=== PATIENT | female | born 1960 | race Caucasian/White ===

== ENCOUNTER 2017-09-21 08:53 | Emergency (ER) | payer MEDICARE, MEDICAID ==
[~2017-09-21] VITALS: Ht 160 cm; Wt 83.8 kg
[~2017-09-21 08:53] MED LIST: AMLO5TAB4 PO; ARIP20TA4 PO; ASPI-1265 PO; ASPI1CPM9 PO; BECL8.7A7 IH; BENZ1TAB7 PO; BUDE10.2 INH; CARV3.1289 PO; CYCL-1 PO; DET2LAC PO; DIO80T PO; DIPH-186 PO; DIPH1TAB PO; DIVA500T7 PO; ESCI20TA29 PO; HYDR1TAB10 PO; LORA10TA7 PO; METF500T PO; METF500T4 PO; ONDA4TAB12 PO; PANT-47 PO; SIMV20TA5 PF
[2017-09-21 09:00] VITALS: BP 143/62
== END 2017-09-21 09:37 | disposition home or self-care (01) ==
LOC: ER 08:53
DX: J30.9 Allergic rhinitis, unspecified (principal); J44.9 Chronic obstructive pulmonary disease, unspecified; E11.9 Type 2 diabetes mellitus without complications; I10 Essential (primary) hypertension; K21.9 Gastro-esophageal reflux disease without esophagitis; E78.00 Pure hypercholesterolemia, unspecified; G89.29 Other chronic pain; Z86.718 Personal history of other venous thrombosis and embolism; Z88.0 Allergy status to penicillin; Z88.5 Allergy status to narcotic agent; Z86.73 Personal history of transient ischemic attack (TIA), and cerebral infarction without residual deficits; Z79.4 Long term (current) use of insulin; Z79.82 Long term (current) use of aspirin
CPT/HCPCS: 99281

== ENCOUNTER 2017-11-30 08:08 | Emergency (ER) | payer MEDICARE, MEDICAID ==
[~2017-11-30] VITALS: Ht 160 cm; Wt 59.1 kg
[~2017-11-30 08:08] MED LIST changes: -METF500T4 PO; +METF500T6 PO
[2017-11-30] MEDS ORDERED: ibuprofen tablet 400 MG TABLET PO ONE (08:20)
[2017-11-30 08:46] VITALS: BP 142/73
== END 2017-11-30 09:05 | disposition home or self-care (01) ==
LOC: ER 08:09
DX: R51 Headache (principal); R42 Dizziness and giddiness; E78.00 Pure hypercholesterolemia, unspecified; I10 Essential (primary) hypertension; J44.9 Chronic obstructive pulmonary disease, unspecified; K21.9 Gastro-esophageal reflux disease without esophagitis; E11.9 Type 2 diabetes mellitus without complications; G89.29 Other chronic pain; Z86.718 Personal history of other venous thrombosis and embolism; Z86.73 Personal history of transient ischemic attack (TIA), and cerebral infarction without residual deficits; Z98.890 Other specified postprocedural states; Z60.2 Problems related to living alone; Z88.5 Allergy status to narcotic agent; Z88.8 Allergy status to other drugs, medicaments and biological substances; Z79.82 Long term (current) use of aspirin; Z79.84 Long term (current) use of oral hypoglycemic drugs; Z79.899 Other long term (current) drug therapy
CPT/HCPCS: 99284

== ENCOUNTER 2018-02-09 11:32 | Emergency (ER) | payer MEDICARE, MEDICAID ==
[~2018-02-09] VITALS: Ht 160 cm; Wt 60.0 kg
[~2018-02-09 11:32] MED LIST changes: +DIVA-76 PO; -DIVA500T7 PO; +METF-950 PO; -METF500T6 PO
[2018-02-09 11:47] VITALS: BP 149/64
== END 2018-02-09 14:29 | disposition home or self-care (01) ==
LOC: ER 11:32
DX: R51 Headache (principal); M54.2 Cervicalgia; M25.532 Pain in left wrist; M25.512 Pain in left shoulder; E78.00 Pure hypercholesterolemia, unspecified; I10 Essential (primary) hypertension; J44.9 Chronic obstructive pulmonary disease, unspecified; K21.9 Gastro-esophageal reflux disease without esophagitis; E11.9 Type 2 diabetes mellitus without complications; G89.29 Other chronic pain; Z86.73 Personal history of transient ischemic attack (TIA), and cerebral infarction without residual deficits; Z86.718 Personal history of other venous thrombosis and embolism; Z88.6 Allergy status to analgesic agent; Z88.1 Allergy status to other antibiotic agents; Z79.82 Long term (current) use of aspirin; W01.0XXA Fall on same level from slipping, tripping and stumbling without subsequent striking against object, initial encounter; Y93.89 Activity, other specified; Y92.89 Other specified places as the place of occurrence of the external cause; Y99.8 Other external cause status
CPT/HCPCS: 70450; 72125; 73030; 73110; 99284

== ENCOUNTER 2018-03-20 18:16 | Emergency (ER) | payer MEDICARE, MEDICAID ==
[~2018-03-20] VITALS: Ht 167.6 cm; Wt 56.0 kg
[2018-03-20 18:35] LABS: BASOPHILS % (AUTO) 0.5 % (0-1); EOSINOPHILS # (AUTO) 0.1 X10'3 (0-0.9); EOSINOPHILS % (AUTO) 1.3 % (0-6); HEMATOCRIT 37.1 % (35.0-45.0); HEMOGLOBIN 12.4 g/dl (12.0-16.0); LYMPHOCYTES # (AUTO) 2.2 X10'3 (1.1-4.8); LYMPHOCYTES % (AUTO) 22.8 % (21-51); MEAN CORPUSCULAR HGB CONC 33.5 % (33.0-36.5); MEAN CORPUSCULAR VOLUME 95.5 FL (78-98); MEAN PLATELET VOLUME 7.7 FL (7.4-10.4); MONOCYTES # (AUTO) 0.5 X10'3 (0-0.9); MONOCYTES % (AUTO) 5.5 % (2-12); NEUTROPHILS # (AUTO) 6.6 X10'3 (1.8-7.7); NEUTROPHILS % (AUTO) 69.9 % (42-75); PLATELET COUNT 217 X10'3 (140-440); RED BLOOD COUNT 3.89 X10'6 (4.20-5.60); RED CELL DISTRIBUTION WIDTH 14.6 % (11.5-14.5); WHITE BLOOD COUNT 9.4 X10'3 (4.5-11.0)
[2018-03-20 19:02] LABS: ALANINE AMINOTRANSFERASE 12 U/L (12-78); ALBUMIN 2.9 G/DL (3.4-5.0); ALBUMIN/GLOBULIN RATIO 0.9 (1.1-1.5); ALKALINE PHOSPHATASE 46 IU/L (46-116); ANION GAP 8 (8-16); ASPARTATE AMINO TRANSFERASE 8 U/L (10-37); BILIRUBIN,TOTAL 0.2 MG/DL (0.1-1.0); BLOOD UREA NITROGEN 18 MG/DL (7-18); CALCIUM 8.6 MG/DL (8.5-10.1); CHLORIDE 104 MMOL/L (99-107); CREATININE 0.75 MG/DL (0.40-0.90); GLUCOSE 95 MG/DL (70-104); POTASSIUM 4.4 MMOL/L (3.5-5.1); SODIUM 140 MMOL/L (135-145); TOTAL CARBON DIOXIDE 28.1 MMOL/L (24-32); TOTAL PROTEIN 6.3 G/DL (6.4-8.2); eGFR 80 ML/MIN
[2018-03-20 19:04] LABS: PARTIAL THROMBOPLASTIN TIME 27 SECONDS (22-32); PROTHROMBIN TIME 10.5 SECONDS (9.0-12.0)
[2018-03-20] MEDS ORDERED: GUAI600T45 PO (20:06)
[2018-03-20 20:13] VITALS: BP 139/70
== END 2018-03-20 20:16 | disposition home or self-care (01) ==
LOC: ER 18:16
DX: J06.9 Acute upper respiratory infection, unspecified (principal); E78.00 Pure hypercholesterolemia, unspecified; I10 Essential (primary) hypertension; J44.9 Chronic obstructive pulmonary disease, unspecified; K21.9 Gastro-esophageal reflux disease without esophagitis; E11.9 Type 2 diabetes mellitus without complications; G89.29 Other chronic pain; Z86.718 Personal history of other venous thrombosis and embolism; Z86.69 Personal history of other diseases of the nervous system and sense organs; Z86.73 Personal history of transient ischemic attack (TIA), and cerebral infarction without residual deficits; Z98.890 Other specified postprocedural states; Z88.5 Allergy status to narcotic agent; Z88.1 Allergy status to other antibiotic agents; Z79.82 Long term (current) use of aspirin; Z79.899 Other long term (current) drug therapy
CPT/HCPCS: 36415; 71045; 80053; 84484; 85025; 85610; 85730; 93005; 99285

== ENCOUNTER 2018-04-24 12:30 | Emergency (ER) | payer MEDICARE, MEDICAID ==
[~2018-04-24] VITALS: Ht 167.6 cm; Wt 69.0 kg
[~2018-04-24 12:30] MED LIST changes: +GUAI600T45 PO
[2018-04-24 12:54] VITALS: BP 171/92
[2018-04-24 13:07] LABS: BASOPHILS % (AUTO) 0.5 % (0-1); EOSINOPHILS # (AUTO) 0.1 X10'3 (0-0.9); EOSINOPHILS % (AUTO) 2.1 % (0-6); HEMATOCRIT 39.2 % (35.0-45.0); HEMOGLOBIN 12.7 g/dl (12.0-16.0); LYMPHOCYTES # (AUTO) 1.9 X10'3 (1.1-4.8); LYMPHOCYTES % (AUTO) 27.3 % (21-51); MEAN CORPUSCULAR HEMOGLOBIN 31.4 PG (27.0-31.0); MEAN CORPUSCULAR HGB CONC 32.5 % (33.0-36.5); MEAN CORPUSCULAR VOLUME 96.4 FL (78-98); MEAN PLATELET VOLUME 7.9 FL (7.4-10.4); MONOCYTES # (AUTO) 0.5 X10'3 (0-0.9); MONOCYTES % (AUTO) 7.1 % (2-12); NEUTROPHILS # (AUTO) 4.4 X10'3 (1.8-7.7); PLATELET COUNT 277 X10'3 (140-440); RED BLOOD COUNT 4.06 X10'6 (4.20-5.60); RED CELL DISTRIBUTION WIDTH 14.2 % (11.5-14.5)
[2018-04-24] MEDS ORDERED: mag hydrox/Alum hydrox/simeth 30ml oral suspension PO ONE (13:10)
[2018-04-24] MEDS ORDERED: famotidine 20mg tablet PO ONE (13:10)
[2018-04-24 13:29] LABS: ALANINE AMINOTRANSFERASE 13 U/L (12-78); ALBUMIN 3.4 G/DL (3.4-5.0); ALBUMIN/GLOBULIN RATIO 0.9 (1.1-1.5); ALKALINE PHOSPHATASE 55 IU/L (46-116); ANION GAP 8 (8-16); ASPARTATE AMINO TRANSFERASE 11 U/L (10-37); BILIRUBIN,TOTAL 0.2 MG/DL (0.1-1.0); BLOOD UREA NITROGEN 17 MG/DL (7-18); BUN/CREATININE RATIO 20.5 (6.6-38.0); CALCIUM 9.5 MG/DL (8.5-10.1); CHLORIDE 103 MMOL/L (99-107); CREATININE 0.83 MG/DL (0.40-0.90); GLUCOSE 100 MG/DL (70-104); POTASSIUM 4.5 MMOL/L (3.5-5.1); SODIUM 140 MMOL/L (135-145); TOTAL CARBON DIOXIDE 28.8 MMOL/L (24-32); TOTAL PROTEIN 7.4 G/DL (6.4-8.2); eGFR 71 ML/MIN
[2018-04-24 13:33] LABS: INR 1.1 INR; PARTIAL THROMBOPLASTIN TIME 27 SECONDS (22-32); PROTHROMBIN TIME 10.7 SECONDS (9.0-12.0)
== END 2018-04-24 14:08 | disposition home or self-care (01) ==
LOC: ER 12:30
DX: R07.89 Other chest pain (principal); E78.00 Pure hypercholesterolemia, unspecified; I10 Essential (primary) hypertension; J44.9 Chronic obstructive pulmonary disease, unspecified; K21.9 Gastro-esophageal reflux disease without esophagitis; E11.9 Type 2 diabetes mellitus without complications; G89.29 Other chronic pain; F17.200 Nicotine dependence, unspecified, uncomplicated; Z86.718 Personal history of other venous thrombosis and embolism; Z86.69 Personal history of other diseases of the nervous system and sense organs; Z86.73 Personal history of transient ischemic attack (TIA), and cerebral infarction without residual deficits; Z98.890 Other specified postprocedural states; Z60.2 Problems related to living alone; Z88.5 Allergy status to narcotic agent; Z88.1 Allergy status to other antibiotic agents; Z88.6 Allergy status to analgesic agent; Z79.82 Long term (current) use of aspirin; Z79.899 Other long term (current) drug therapy
CPT/HCPCS: 36415; 71045; 80053; 84484; 85025; 85379; 85610; 85730; 93005; 99284

== ENCOUNTER 2018-05-14 08:29 | Emergency (ER) | payer MEDICARE, MEDICAID ==
[~2018-05-14] VITALS: Ht 167.6 cm; Wt 65.9 kg
[2018-05-14 09:56] LABS: BASOPHILS % (AUTO) 0.4 % (0-1); EOSINOPHILS # (AUTO) 0.2 X10'3 (0-0.9); EOSINOPHILS % (AUTO) 2.4 % (0-6); HEMATOCRIT 37.8 % (35.0-45.0); HEMOGLOBIN 12.4 g/dl (12.0-16.0); LYMPHOCYTES # (AUTO) 1.5 X10'3 (1.1-4.8); LYMPHOCYTES % (AUTO) 17.9 % (21-51); MEAN CORPUSCULAR HEMOGLOBIN 31.5 PG (27.0-31.0); MEAN CORPUSCULAR HGB CONC 32.9 % (33.0-36.5); MEAN CORPUSCULAR VOLUME 95.8 FL (78-98); MEAN PLATELET VOLUME 8.1 FL (7.4-10.4); MONOCYTES # (AUTO) 0.4 X10'3 (0-0.9); MONOCYTES % (AUTO) 4.7 % (2-12); NEUTROPHILS # (AUTO) 6.1 X10'3 (1.8-7.7); NEUTROPHILS % (AUTO) 74.6 % (42-75); PLATELET COUNT 243 X10'3 (140-440); RED BLOOD COUNT 3.95 X10'6 (4.20-5.60); WHITE BLOOD COUNT 8.2 X10'3 (4.5-11.0)
[2018-05-14 10:09] LABS: ALANINE AMINOTRANSFERASE 11 U/L (12-78); ALBUMIN 3.2 G/DL (3.4-5.0); ALBUMIN/GLOBULIN RATIO 0.9 (1.1-1.5); ALKALINE PHOSPHATASE 54 IU/L (46-116); ANION GAP 8 (8-16); ASPARTATE AMINO TRANSFERASE 8 U/L (10-37); BILIRUBIN,TOTAL 0.2 MG/DL (0.1-1.0); BLOOD UREA NITROGEN 20 MG/DL (7-18); BUN/CREATININE RATIO 22.2 (6.6-38.0); CALCIUM 9.2 MG/DL (8.5-10.1); CHLORIDE 102 MMOL/L (99-107); GLUCOSE 159 MG/DL (70-104); LIPASE 128 U/L (73-393); POTASSIUM 4.7 MMOL/L (3.5-5.1); SODIUM 140 MMOL/L (135-145); TOTAL CARBON DIOXIDE 29.9 MMOL/L (24-32); TOTAL PROTEIN 6.9 G/DL (6.4-8.2); eGFR 65 ML/MIN
[2018-05-14] MEDS ORDERED: normal saline 1000ML IV soln IVB ONE (10:15)
[2018-05-14] MEDS ORDERED: morphine 4 MG/ML inj SYRINge IV PRN (10:15)
[2018-05-14 11:44] VITALS: BP 146/96
== END 2018-05-14 11:46 | disposition home or self-care (01) ==
LOC: ER 08:30
DX: R10.10 Upper abdominal pain, unspecified (principal); R19.7 Diarrhea, unspecified; R10.84 Generalized abdominal pain; E78.00 Pure hypercholesterolemia, unspecified; I10 Essential (primary) hypertension; J44.9 Chronic obstructive pulmonary disease, unspecified; K21.9 Gastro-esophageal reflux disease without esophagitis; E11.9 Type 2 diabetes mellitus without complications; M19.90 Unspecified osteoarthritis, unspecified site; G89.29 Other chronic pain; Z86.73 Personal history of transient ischemic attack (TIA), and cerebral infarction without residual deficits; Z86.718 Personal history of other venous thrombosis and embolism; Z98.890 Other specified postprocedural states; Z88.6 Allergy status to analgesic agent; Z88.8 Allergy status to other drugs, medicaments and biological substances; Z88.1 Allergy status to other antibiotic agents; Z79.82 Long term (current) use of aspirin; Z79.899 Other long term (current) drug therapy
CPT/HCPCS: 36415; 74176; 80053; 83690; 85025; 85610; 93005; 96361; 96374; 99284; J2270; J7030

== ENCOUNTER 2018-05-24 13:20 | Emergency (ER) | payer MEDICARE, MEDICAID ==
[~2018-05-24] VITALS: Ht 167.6 cm; Wt 65.9 kg
[2018-05-24 13:28] VITALS: BP 140/62
--- NOTE | 2018-05-24 14:10 | NUR ---
Pt facility staff contacted, someone with come to the ED to pick her up. Pt to wait in lobby for transportation.
--- NOTE | 2018-05-24 14:10 | NUR ---
PO Challenge with water, pt able to swallow water without difficulty.
== END 2018-05-24 14:17 | disposition home or self-care (01) ==
LOC: ER 13:21
DX: T17.828A Food in other parts of respiratory tract causing other injury, initial encounter (principal); I10 Essential (primary) hypertension; E78.00 Pure hypercholesterolemia, unspecified; J44.9 Chronic obstructive pulmonary disease, unspecified; K21.9 Gastro-esophageal reflux disease without esophagitis; E11.9 Type 2 diabetes mellitus without complications; M19.90 Unspecified osteoarthritis, unspecified site; G89.29 Other chronic pain; Z86.718 Personal history of other venous thrombosis and embolism; Z86.73 Personal history of transient ischemic attack (TIA), and cerebral infarction without residual deficits; Z98.890 Other specified postprocedural states; Z88.6 Allergy status to analgesic agent; Z88.5 Allergy status to narcotic agent; Z88.1 Allergy status to other antibiotic agents; Z88.8 Allergy status to other drugs, medicaments and biological substances; Z79.82 Long term (current) use of aspirin; Z79.84 Long term (current) use of oral hypoglycemic drugs; Z79.899 Other long term (current) drug therapy; X58.XXXA Exposure to other specified factors, initial encounter; Y93.89 Activity, other specified; Y92.89 Other specified places as the place of occurrence of the external cause; Y99.8 Other external cause status
CPT/HCPCS: 99283

== ENCOUNTER 2018-07-22 07:36 | Emergency (ER) | payer MEDICARE, MEDICAID ==
[~2018-07-22] VITALS: Ht 167.6 cm; Wt 65.9 kg
[2018-07-22 07:42] VITALS: BP 143/75
== END 2018-07-22 08:43 | disposition home or self-care (01) ==
LOC: ER 07:36
DX: F31.9 Bipolar disorder, unspecified (principal); F41.9 Anxiety disorder, unspecified; I10 Essential (primary) hypertension; E78.00 Pure hypercholesterolemia, unspecified; J44.9 Chronic obstructive pulmonary disease, unspecified; E11.9 Type 2 diabetes mellitus without complications; M19.90 Unspecified osteoarthritis, unspecified site; G89.29 Other chronic pain; Z86.73 Personal history of transient ischemic attack (TIA), and cerebral infarction without residual deficits; Z86.718 Personal history of other venous thrombosis and embolism; Z79.82 Long term (current) use of aspirin; Z88.6 Allergy status to analgesic agent; Z88.1 Allergy status to other antibiotic agents; Z88.8 Allergy status to other drugs, medicaments and biological substances
CPT/HCPCS: 99281; 99283

== ENCOUNTER 2018-08-19 07:03 | Emergency (ER) | payer MEDICARE, MEDICAID ==
[~2018-08-19] VITALS: Ht 160 cm; Wt 61.4 kg
[2018-08-19 07:13] VITALS: BP 136/57
[2018-08-19] MEDS ORDERED: HYDR-3965 PO (07:43)
[2018-08-19] MEDS ORDERED: HYDROcodone/acetaminophen 5mg/325mg tablet PO ONE (07:45)
[2018-08-19] MEDS ORDERED: ondansetron 4mg rapidly disintigrating tab PO ONE (07:45)
== END 2018-08-19 07:58 | disposition home or self-care (01) ==
LOC: ER 07:03
DX: M25.551 Pain in right hip (principal); E78.00 Pure hypercholesterolemia, unspecified; I10 Essential (primary) hypertension; J44.9 Chronic obstructive pulmonary disease, unspecified; K21.9 Gastro-esophageal reflux disease without esophagitis; E11.9 Type 2 diabetes mellitus without complications; G89.29 Other chronic pain; F32.9 Major depressive disorder, single episode, unspecified; L40.9 Psoriasis, unspecified; M19.90 Unspecified osteoarthritis, unspecified site; Z88.5 Allergy status to narcotic agent; Z88.1 Allergy status to other antibiotic agents; Z88.8 Allergy status to other drugs, medicaments and biological substances; Z79.82 Long term (current) use of aspirin; Z79.899 Other long term (current) drug therapy; Z86.73 Personal history of transient ischemic attack (TIA), and cerebral infarction without residual deficits; Z86.718 Personal history of other venous thrombosis and embolism
CPT/HCPCS: 99283

== ENCOUNTER 2018-09-27 07:18 | Emergency (ER) | payer MEDICARE, MEDICAID ==
[~2018-09-27] VITALS: Ht 167.6 cm; Wt 65.9 kg
[2018-09-27] MEDS ORDERED: ibuprofen tablet 400 MG TABLET PO ONE (08:15)
[2018-09-27] MEDS ORDERED: acetaminophen 325mg tablet PO ONE (08:15)
[2018-09-27 09:02] VITALS: BP 138/70
== END 2018-09-27 09:03 | disposition home or self-care (01) ==
LOC: ER 07:19
DX: G89.29 Other chronic pain (principal); M25.551 Pain in right hip; I10 Essential (primary) hypertension; E78.00 Pure hypercholesterolemia, unspecified; J44.9 Chronic obstructive pulmonary disease, unspecified; K21.9 Gastro-esophageal reflux disease without esophagitis; E11.9 Type 2 diabetes mellitus without complications; M19.90 Unspecified osteoarthritis, unspecified site; Z86.718 Personal history of other venous thrombosis and embolism; Z88.6 Allergy status to analgesic agent; Z88.1 Allergy status to other antibiotic agents; Z79.82 Long term (current) use of aspirin
CPT/HCPCS: 99283

== ENCOUNTER 2018-12-19 00:39 | Emergency (ER) | payer MEDICARE, MEDICAID ==
[~2018-12-19] VITALS: Ht 167.6 cm; Wt 61.5 kg
[~2018-12-19 00:39] MED LIST changes: +DOCU-28 PO
[2018-12-19 00:52] VITALS: BP 165/65
== END 2018-12-19 03:19 | disposition left against medical advice (07) ==
LOC: ER 00:40
DX: M25.551 Pain in right hip (principal); Z53.21 Procedure and treatment not carried out due to patient leaving prior to being seen by health care provider

== ENCOUNTER 2019-06-27 18:39 | Emergency (ER) | payer MEDICARE, MEDICAID ==
[~2019-06-27] VITALS: Ht 154.9 cm; Wt 64.1 kg
[~2019-06-27 18:39] MED LIST changes: +SIMV-42 PF; -SIMV20TA5 PF
[2019-06-27] MEDS ORDERED: ipratropium/albuterol 3ml nebule NEB ONE (19:40)
[2019-06-27] MEDS ORDERED: predniSONE 20 mg tablet PO ONE (19:40)
[2019-06-27] MEDS ORDERED: benzonatate 100mg capsule PO ONE (19:40)
[2019-06-27] MEDS ORDERED: BENZ-16 PO (20:00)
[2019-06-27] MEDS ORDERED: BUDE10.2 INH (20:00)
[2019-06-27] MEDS ORDERED: PRED20TA PO (20:00)
[2019-06-27 20:44] VITALS: BP 11/67
== END 2019-06-27 20:42 | disposition home or self-care (01) ==
LOC: ER 18:39
DX: J98.01 Acute bronchospasm (principal); E78.00 Pure hypercholesterolemia, unspecified; I10 Essential (primary) hypertension; J44.9 Chronic obstructive pulmonary disease, unspecified; K21.9 Gastro-esophageal reflux disease without esophagitis; E11.9 Type 2 diabetes mellitus without complications; M19.90 Unspecified osteoarthritis, unspecified site; G89.29 Other chronic pain; F41.9 Anxiety disorder, unspecified; F17.200 Nicotine dependence, unspecified, uncomplicated; F31.9 Bipolar disorder, unspecified; Z86.718 Personal history of other venous thrombosis and embolism; Z86.73 Personal history of transient ischemic attack (TIA), and cerebral infarction without residual deficits; Z86.69 Personal history of other diseases of the nervous system and sense organs; Z98.890 Other specified postprocedural states; Z88.5 Allergy status to narcotic agent; Z88.1 Allergy status to other antibiotic agents; Z79.82 Long term (current) use of aspirin; Z79.84 Long term (current) use of oral hypoglycemic drugs; Z79.899 Other long term (current) drug therapy
CPT/HCPCS: 94640; 99283; J7512; 94760

== ENCOUNTER 2019-07-05 12:39 | Emergency (ER) | payer MEDICARE, MEDICAID ==
[~2019-07-05] VITALS: Ht 160 cm; Wt 63.0 kg
[~2019-07-05 12:39] MED LIST changes: +BENZ-16 PO; +PRED20TA PO
[2019-07-05] MEDS ORDERED: normal saline 1000ml 1,000 ML IV ONE ×2 (16:20→17:05)
[2019-07-05 16:50] LABS: BASOPHILS # (AUTO) 0.1 X10'3 (0-0.2); BASOPHILS % (AUTO) 0.8 % (0-1); EOSINOPHILS # (AUTO) 0.2 X10'3 (0-0.9); EOSINOPHILS % (AUTO) 1.9 % (0-6); HEMATOCRIT 38.8 % (35.0-45.0); HEMOGLOBIN 12.6 g/dl (12.0-16.0); LYMPHOCYTES # (AUTO) 2.3 X10'3 (1.1-4.8); LYMPHOCYTES % (AUTO) 25.6 % (21-51); MEAN CORPUSCULAR HGB CONC 32.6 g/dL (33.0-36.5); MEAN CORPUSCULAR VOLUME 89.1 FL (78-98); MEAN PLATELET VOLUME 8.4 FL (7.4-10.4); MONOCYTES # (AUTO) 0.5 X10'3 (0-0.9); MONOCYTES % (AUTO) 5.9 % (2-12); NEUTROPHILS # (AUTO) 5.9 X10'3 (1.8-7.7); NEUTROPHILS % (AUTO) 65.8 % (42-75); PLATELET COUNT 250 X10'3 (140-440); RED BLOOD COUNT 4.35 X10'6 (4.20-5.60); RED CELL DISTRIBUTION WIDTH 17.4 % (11.5-14.5)
[2019-07-05 17:05] LABS: ALANINE AMINOTRANSFERASE 14 U/L (12-78); ALBUMIN 3.2 G/DL (3.4-5.0); ALBUMIN/GLOBULIN RATIO 0.9 (1.1-1.5); ALKALINE PHOSPHATASE 72 IU/L (46-116); ANION GAP 1 (8-16); ASPARTATE AMINO TRANSFERASE 7 U/L (10-37); BILIRUBIN,TOTAL 0.2 MG/DL (0.1-1.0); BLOOD UREA NITROGEN 24 MG/DL (7-18); BUN/CREATININE RATIO 25.3 (6.6-38.0); CALCIUM 8.9 MG/DL (8.5-10.1); CHLORIDE 104 MMOL/L (99-107); CREATININE 0.95 MG/DL (0.40-0.90); GLUCOSE 260 MG/DL (70-104); POTASSIUM 4.7 MMOL/L (3.5-5.1); SODIUM 139 MMOL/L (135-145); TOTAL CARBON DIOXIDE 33.7 MMOL/L (24-32); TOTAL PROTEIN 6.7 G/DL (6.4-8.2); eGFR 60 ML/MIN
[2019-07-05 17:15] LABS: CLARITY,URINE CLEAR (Clear); COLOR,URINE YELLOW (Yellow); GLUCOSE, URINE >=1000 mg/dl (Neg); KETONES,URINE NEGATIVE (Neg); LEUKOCYTE ESTERASE ,URINE NEGATIVE (Neg); NITRITES, URINE POSITIVE (Neg); OCCULT BLOOD,URINE NEGATIVE (Neg); PROTEIN,URINE NEGATIVE (Neg); UROBILINOGEN,URINE 0.2 E.U/dL (0.2-1.0)
[2019-07-05 17:17] LABS: UA COLLECTION TYPE CLN CATCH MIDSTREAM
[2019-07-05 17:22] LABS: BACTERIA,URINE 3+ /HPF (Neg); MUCUS STRANDS NONE SEEN /LPF (Neg); RBC,URINE NONE SEEN /HPF (0-2); SQUAMOUS EPITHELIAL CELL,UR FEW /LPF (FEW); WBC,URINE 0-4 /HPF (0-4)
[2019-07-05] MEDS ORDERED: NITR100C6 PO (17:32)
[2019-07-05 18:40] VITALS: BP 157/86
== END 2019-07-05 18:41 | disposition home or self-care (01) ==
LOC: ER 12:39
DX: E11.65 Type 2 diabetes mellitus with hyperglycemia (principal); N39.0 Urinary tract infection, site not specified; E78.00 Pure hypercholesterolemia, unspecified; I10 Essential (primary) hypertension; J44.9 Chronic obstructive pulmonary disease, unspecified; K21.9 Gastro-esophageal reflux disease without esophagitis; M19.90 Unspecified osteoarthritis, unspecified site; G89.29 Other chronic pain; F41.9 Anxiety disorder, unspecified; F31.9 Bipolar disorder, unspecified; Z86.718 Personal history of other venous thrombosis and embolism; Z86.73 Personal history of transient ischemic attack (TIA), and cerebral infarction without residual deficits; Z98.890 Other specified postprocedural states; Z88.5 Allergy status to narcotic agent; Z88.1 Allergy status to other antibiotic agents; Z79.82 Long term (current) use of aspirin; Z79.899 Other long term (current) drug therapy; Z79.84 Long term (current) use of oral hypoglycemic drugs
CPT/HCPCS: 36415; 80053; 81001; 82948; 85025; 87077; 87088; 87186; 96360; 96361; 99283; J7030

== ENCOUNTER 2019-07-07 21:25 | Emergency (ER) | payer MEDICARE, MEDICAID ==
[~2019-07-07] VITALS: Ht 160 cm; Wt 63.5 kg
[~2019-07-07 21:25] MED LIST changes: +NITR100C6 PO
[2019-07-07] MEDS ORDERED: normal saline 1000ML IV soln IVB ONE (23:10)
[2019-07-07 23:38] LABS: CLARITY,URINE CLEAR (Clear); COLOR,URINE YELLOW (Yellow); GLUCOSE, URINE >=1000 mg/dl (Neg); KETONES,URINE NEGATIVE (Neg); LEUKOCYTE ESTERASE ,URINE TRACE (Neg); NITRITES, URINE NEGATIVE (Neg); OCCULT BLOOD,URINE NEGATIVE (Neg); PROTEIN,URINE TRACE mg/dl (Neg); UROBILINOGEN,URINE 0.2 E.U/dL (0.2-1.0)
[2019-07-07 23:44] LABS: BASOPHILS # (AUTO) 0.1 X10'3 (0-0.2); BASOPHILS % (AUTO) 0.8 % (0-1); EOSINOPHILS # (AUTO) 0.2 X10'3 (0-0.9); EOSINOPHILS % (AUTO) 1.8 % (0-6); HEMATOCRIT 38.9 % (35.0-45.0); LYMPHOCYTES # (AUTO) 2.1 X10'3 (1.1-4.8); LYMPHOCYTES % (AUTO) 16.9 % (21-51); MEAN CORPUSCULAR HGB CONC 33.5 g/dL (33.0-36.5); MEAN CORPUSCULAR VOLUME 89.4 FL (78-98); MEAN PLATELET VOLUME 8.3 FL (7.4-10.4); MONOCYTES # (AUTO) 0.7 X10'3 (0-0.9); MONOCYTES % (AUTO) 5.6 % (2-12); NEUTROPHILS # (AUTO) 9.2 X10'3 (1.8-7.7); NEUTROPHILS % (AUTO) 74.9 % (42-75); PLATELET COUNT 218 X10'3 (140-440); RED BLOOD COUNT 4.35 X10'6 (4.20-5.60); RED CELL DISTRIBUTION WIDTH 17.2 % (11.5-14.5); WHITE BLOOD COUNT 12.3 X10'3 (4.5-11.0)
[2019-07-07 23:45] LABS: UA COLLECTION TYPE CLN CATCH MIDSTREAM
[2019-07-07 23:47] LABS: BACTERIA,URINE NONE SEEN /HPF (Neg); RBC,URINE NONE SEEN /HPF (0-2); WBC,URINE 0-4 /HPF (0-4)
[2019-07-07 23:48] LABS: SQUAMOUS EPITHELIAL CELL,UR FEW /LPF (FEW)
[2019-07-07 23:55] LABS: PARTIAL THROMBOPLASTIN TIME 25 SECONDS (22-32)
[2019-07-07 23:58] LABS: ALANINE AMINOTRANSFERASE 12 U/L (12-78); ALBUMIN 3.3 G/DL (3.4-5.0); ALBUMIN/GLOBULIN RATIO 0.9 (1.1-1.5); ALKALINE PHOSPHATASE 73 IU/L (46-116); ANION GAP 5 (8-16); ASPARTATE AMINO TRANSFERASE 7 U/L (10-37); BILIRUBIN,TOTAL 0.3 MG/DL (0.1-1.0); BLOOD UREA NITROGEN 22 MG/DL (7-18); BUN/CREATININE RATIO 16.5 (6.6-38.0); CHLORIDE 102 MMOL/L (99-107); CREATININE 1.33 MG/DL (0.40-0.90); ETHANOL < 0.010 GM/DL (0.0-0.010); GLUCOSE 235 MG/DL (70-104); LIPASE 108 U/L (73-393); MAGNESIUM 1.6 MG/DL (1.5-2.4); POTASSIUM 4.7 MMOL/L (3.5-5.1); SODIUM 137 MMOL/L (135-145); TOTAL CARBON DIOXIDE 29.7 MMOL/L (24-32); eGFR 41 ML/MIN
[2019-07-08] MEDS ORDERED: normal saline 1000ML IV soln IVB ONE (01:05)
[2019-07-08] MEDS ORDERED: ondansetron/PF 4mg/2ml inj IV ONE (01:05)
[2019-07-08] MEDS ORDERED: insulin regular, human 10 units/0.1 ml syringe SQ ONE (01:05)
[2019-07-08] MEDS ORDERED: METF500T PO (01:07)
[2019-07-08] MEDS ORDERED: sulfamethoxazole/trimethoprim DS (800/160mg) tablet PO ONE (01:55)
[2019-07-08] MEDS ORDERED: SULF1TAB49 PO (01:58)
[2019-07-08 02:08] VITALS: BP 119/45
== END 2019-07-08 02:11 | disposition home or self-care (01) ==
LOC: ER 21:26
DX: E86.0 Dehydration (principal); N39.0 Urinary tract infection, site not specified; E11.65 Type 2 diabetes mellitus with hyperglycemia; R11.2 Nausea with vomiting, unspecified; E78.00 Pure hypercholesterolemia, unspecified; I10 Essential (primary) hypertension; J44.9 Chronic obstructive pulmonary disease, unspecified; K21.9 Gastro-esophageal reflux disease without esophagitis; M19.90 Unspecified osteoarthritis, unspecified site; G89.29 Other chronic pain; F17.200 Nicotine dependence, unspecified, uncomplicated; Z86.73 Personal history of transient ischemic attack (TIA), and cerebral infarction without residual deficits; Z98.890 Other specified postprocedural states; Z86.718 Personal history of other venous thrombosis and embolism; Z88.5 Allergy status to narcotic agent; Z88.1 Allergy status to other antibiotic agents; Z79.82 Long term (current) use of aspirin; Z79.899 Other long term (current) drug therapy
CPT/HCPCS: 36415; 80053; 80320; 81001; 82948; 83605; 83690; 83735; 85025; 85610; 85730; 87040; 87088; 96361; 96372; 96374; 99284; J1815; J2405; J7030

== ENCOUNTER 2023-01-21 17:21 | Emergency (ER) | payer MEDICARE, MEDICAID ==
[~2023-01-21] VITALS: Ht 157.5 cm; Wt 60.0 kg
[~2023-01-21 17:21] MED LIST changes: -BENZ-16 PO; -BENZ1TAB7 PO; +BENZ1TAB93 PO; +METF-1203 PO; -METF-950 PO; -PRED20TA PO
[2023-01-21 17:32] VITALS: BP 114/43; PULSE 67; RESP 18; TEMP 97.8; O2SAT 96
[2023-01-21 17:56] LABS: BASOPHILS % (AUTO) 0.8 % (0-1); EOSINOPHILS # (AUTO) 0.1 X10'3 (0-0.9); EOSINOPHILS % (AUTO) 1.7 % (0-6); HEMATOCRIT 36.3 % (35.0-45.0); HEMOGLOBIN 12.2 g/dl (12.0-16.0); LYMPHOCYTES % (AUTO) 20.3 % (21-51); MEAN CORPUSCULAR HEMOGLOBIN 33.3 PG (27.0-31.0); MEAN CORPUSCULAR HGB CONC 33.5 g/dL (33.0-36.5); MEAN CORPUSCULAR VOLUME 99.5 FL (78-98); MEAN PLATELET VOLUME 8.3 FL (7.4-10.4); MONOCYTES # (AUTO) 0.7 X10'3 (0-0.9); MONOCYTES % (AUTO) 12.9 % (2-12); NEUTROPHILS # (AUTO) 3.3 X10'3 (1.8-7.7); NEUTROPHILS % (AUTO) 64.3 % (42-75); PLATELET COUNT 180 X10'3 (140-440); RED BLOOD COUNT 3.65 X10'6 (4.20-5.60); RED CELL DISTRIBUTION WIDTH 13.9 % (11.5-14.5); WHITE BLOOD COUNT 5.1 X10'3 (4.5-11.0)
[2023-01-21 18:18] LABS: ALANINE AMINOTRANSFERASE 12 U/L (12-78); ALBUMIN 2.8 G/DL (3.4-5.0); ALBUMIN/GLOBULIN RATIO 0.8 (1.1-1.5); ALKALINE PHOSPHATASE 44 IU/L (46-116); ANION GAP 9 (8-16); ASPARTATE AMINO TRANSFERASE 15 U/L (10-37); BILIRUBIN,TOTAL 0.2 MG/DL (0.1-1.0); BLOOD UREA NITROGEN 31 MG/DL (7-18); CALCIUM 8.6 MG/DL (8.5-10.1); CHLORIDE 106 MMOL/L (99-107); CREATININE 0.97 MG/DL (0.40-0.90); GLUCOSE 99 MG/DL (70-104); POTASSIUM 4.8 MMOL/L (3.5-5.1); SODIUM 140 MMOL/L (135-145); TOTAL CARBON DIOXIDE 24.7 MMOL/L (24-32); TOTAL PROTEIN 6.2 G/DL (6.4-8.2); eCRCL 48 ML/MIN; eGFR 58 ML/MIN
[2023-01-21] MEDS ORDERED: ZAFI10TA2 PO (19:51)
[2023-01-21] MEDS ORDERED: ALBU18HF2 INH (19:51)
[2023-01-21] MEDS ORDERED: BENZ-38 PO (19:51)
== END 2023-01-21 20:00 | disposition home or self-care (01) ==
LOC: ER 17:22
DX: J20.9 Acute bronchitis, unspecified (principal); E78.00 Pure hypercholesterolemia, unspecified; I10 Essential (primary) hypertension; J44.9 Chronic obstructive pulmonary disease, unspecified; K21.9 Gastro-esophageal reflux disease without esophagitis; E11.9 Type 2 diabetes mellitus without complications; F31.9 Bipolar disorder, unspecified; Z88.5 Allergy status to narcotic agent; Z88.1 Allergy status to other antibiotic agents; Z79.899 Other long term (current) drug therapy
CPT/HCPCS: 36415; 71045; 80053; 84484; 85025; 93005; 99285

== ENCOUNTER 2023-01-27 12:51 | Emergency (ER) | payer MEDICARE, MEDICAID ==
[~2023-01-27] VITALS: Ht 162.6 cm; Wt 52.4 kg
[2023-01-27 12:51] VITALS: BP 137/42; PULSE 67; RESP 16; TEMP 98.5; O2SAT 94
[~2023-01-27 12:51] MED LIST changes: +ALBU18HF2 INH; +BENZ-38 PO; +ZAFI10TA2 PO
[2023-01-27] MEDS ORDERED: DEC4T PO (17:22)
[2023-01-27] MEDS ORDERED: AZIT-164 PO (17:22)
== END 2023-01-27 17:52 | disposition home or self-care (01) ==
LOC: ER 12:51
DX: J18.9 Pneumonia, unspecified organism (principal); I11.0 Hypertensive heart disease with heart failure; J44.9 Chronic obstructive pulmonary disease, unspecified; E11.9 Type 2 diabetes mellitus without complications; F41.9 Anxiety disorder, unspecified; Z88.6 Allergy status to analgesic agent; Z88.8 Allergy status to other drugs, medicaments and biological substances; Z79.899 Other long term (current) drug therapy; Z79.1 Long term (current) use of non-steroidal anti-inflammatories (NSAID); Z79.2 Long term (current) use of antibiotics
CPT/HCPCS: 99283

== ENCOUNTER 2023-06-25 16:45 | Emergency (ER) | payer MEDICARE, MEDICAID ==
[~2023-06-25] VITALS: Ht 167.6 cm; Wt 49.1 kg
[~2023-06-25 16:45] MED LIST changes: -BENZ-38 PO; +DEC4T PO
[2023-06-25] MEDS ORDERED: IBUP-1984 PO (19:46)
[2023-06-25 20:00] VITALS: BP 145/69; PULSE 78; TEMP 98; O2SAT 98
[2023-06-25 20:05] VITALS: RESP 16
== END 2023-06-25 20:10 | disposition home or self-care (01) ==
LOC: ER 16:46
DX: S52.502A Unspecified fracture of the lower end of left radius, initial encounter for closed fracture (principal); S62.002A Unspecified fracture of navicular [scaphoid] bone of left wrist, initial encounter for closed fracture; S73.101A Unspecified sprain of right hip, initial encounter; M25.551 Pain in right hip; E78.00 Pure hypercholesterolemia, unspecified; I10 Essential (primary) hypertension; J44.9 Chronic obstructive pulmonary disease, unspecified; K21.9 Gastro-esophageal reflux disease without esophagitis; E11.9 Type 2 diabetes mellitus without complications; F31.9 Bipolar disorder, unspecified; F17.200 Nicotine dependence, unspecified, uncomplicated; Z88.5 Allergy status to narcotic agent; Z88.6 Allergy status to analgesic agent; Z88.1 Allergy status to other antibiotic agents; Z79.899 Other long term (current) drug therapy; Z79.82 Long term (current) use of aspirin; Z79.1 Long term (current) use of non-steroidal anti-inflammatories (NSAID); W19.XXXA Unspecified fall, initial encounter; Y93.89 Activity, other specified; Y92.89 Other specified places as the place of occurrence of the external cause; Y99.8 Other external cause status
CPT/HCPCS: 29125; 70450; 72131; 72192; 73110; 73130; 99284; A4565

== ENCOUNTER 2023-07-07 08:44 | Emergency (ER) | payer MEDICARE, MEDICAID ==
[~2023-07-07] VITALS: Ht 157.5 cm; Wt 51.7 kg
[~2023-07-07 08:44] MED LIST changes: +IBUP-1984 PO
[2023-07-07] MEDS: insulin regular, human 10 units/0.1 ml syringe IV ONE (09:10)
[2023-07-07 09:45] LABS: BASOPHILS % (AUTO) 0.6 % (0-1); EOSINOPHILS # (AUTO) 0.1 X10'3 (0-0.9); EOSINOPHILS % (AUTO) 1.9 % (0-6); HEMATOCRIT 39.2 % (35.0-45.0); HEMOGLOBIN 13.1 g/dl (12.0-16.0); LYMPHOCYTES # (AUTO) 1.5 X10'3 (1.1-4.8); LYMPHOCYTES % (AUTO) 18.9 % (21-51); MEAN CORPUSCULAR HGB CONC 33.4 g/dL (33.0-36.5); MEAN PLATELET VOLUME 8.4 FL (7.4-10.4); MONOCYTES # (AUTO) 0.7 X10'3 (0-0.9); MONOCYTES % (AUTO) 9.1 % (2-12); NEUTROPHILS # (AUTO) 5.4 X10'3 (1.8-7.7); NEUTROPHILS % (AUTO) 69.5 % (42-75); PLATELET COUNT 240 X10'3 (140-440); RED BLOOD COUNT 3.96 X10'6 (4.20-5.60); RED CELL DISTRIBUTION WIDTH 13.2 % (11.5-14.5); WHITE BLOOD COUNT 7.8 X10'3 (4.5-11.0)
[2023-07-07] MEDS: normal saline 1000ML IV soln IVB ONE ×2 (10:26→11:54)
[2023-07-07 11:28] LABS: ALBUMIN 2.8 G/DL (3.4-5.0); ANION GAP 8 (8-16); BLOOD UREA NITROGEN 27 MG/DL (7-18); BUN/CREATININE RATIO 30.3 (10.0-20.0); CALCIUM 8.9 MG/DL (8.5-10.1); CHLORIDE 104 MMOL/L (99-107); CREATININE 0.89 MG/DL (0.40-0.90); GLUCOSE 152 MG/DL (70-104); POTASSIUM 4.7 MMOL/L (3.5-5.1); SODIUM 140 MMOL/L (135-145); TOTAL CARBON DIOXIDE 28.5 MMOL/L (24-32); eCRCL 52 ML/MIN; eGFR 64 ML/MIN
[2023-07-07 11:37] LABS: MAGNESIUM 1.6 MG/DL (1.5-2.4)
[2023-07-07 13:40] LABS: BILIRUBIN,URINE NEGATIVE (Neg); COLOR,URINE YELLOW (Yellow); GLUCOSE, URINE 100 mg/dl (Neg); KETONES,URINE NEGATIVE (Neg); LEUKOCYTE ESTERASE ,URINE NEGATIVE (Neg); NITRITES, URINE POSITIVE (Neg); OCCULT BLOOD,URINE NEGATIVE (Neg); PROTEIN,URINE NEGATIVE (Neg); UROBILINOGEN,URINE 0.2 E.U/dL (0.2-1.0)
[2023-07-07 13:43] LABS: CLARITY,URINE SLIGHTLY CLOUDY (Clear); UA COLLECTION TYPE CLN CATCH MIDSTREAM
[2023-07-07 13:47] LABS: BACTERIA,URINE 4+ /HPF (Neg); RBC,URINE NONE SEEN /HPF (0-2); WBC,URINE 0-4 /HPF (0-4)
[2023-07-07 13:48] LABS: MUCUS STRANDS NONE SEEN /LPF (Neg); SQUAMOUS EPITHELIAL CELL,UR FEW /LPF (FEW)
[2023-07-07] MEDS ORDERED: nitrofurantoin macrocrystal 100mg capsule PO SCH (14:00)
[2023-07-07] MEDS ORDERED: NITR100C6 PO (14:01)
[2023-07-07] MEDS: nitrofurantoin macrocrystal 100mg capsule PO ONE (14:36)
[2023-07-07 14:38] VITALS: BP 158/78; PULSE 63; RESP 18; TEMP 98.1; O2SAT 99
== END 2023-07-07 15:07 | disposition home or self-care (01) ==
LOC: ER 08:44
DX: E11.65 Type 2 diabetes mellitus with hyperglycemia (principal); N39.0 Urinary tract infection, site not specified; E78.00 Pure hypercholesterolemia, unspecified; J44.9 Chronic obstructive pulmonary disease, unspecified; K21.9 Gastro-esophageal reflux disease without esophagitis; M19.90 Unspecified osteoarthritis, unspecified site; F31.9 Bipolar disorder, unspecified; Z88.5 Allergy status to narcotic agent; Z88.6 Allergy status to analgesic agent; Z88.1 Allergy status to other antibiotic agents; Z79.899 Other long term (current) drug therapy; Z79.82 Long term (current) use of aspirin; Z79.1 Long term (current) use of non-steroidal anti-inflammatories (NSAID)
CPT/HCPCS: 36415; 71045; 80048; 81001; 82948; 83735; 84484; 85025; 87077; 87088; 87186; 93005; 96360; 96361; 99285; J7030

== ENCOUNTER 2024-02-20 14:13 | Outpatient (CLI) | payer MEDICARE, MEDICAID ==
[~2024-02-20 14:13] MED LIST changes: -IBUP-1984 PO; +ONDA-243 PO; -ONDA4TAB12 PO; -ZAFI10TA2 PO; +ZAFI10TA7 PO
== END 2024-02-20 23:59 | disposition home or self-care (01) ==
LOC: RT 14:13
PROVIDERS: ATTEND Student in an Organized Health Care Education/Training Program
DX: J44.9 Chronic obstructive pulmonary disease, unspecified (principal)
CPT/HCPCS: 94010; J7030

== ENCOUNTER 2025-04-24 08:37 | Emergency (ER) | payer MEDICARE, MEDICAID ==
[~2025-04-24] VITALS: Ht 157.5 cm; Wt 53.7 kg
[~2025-04-24 08:37] MED LIST changes: -BENZ1TAB93 PO; +BENZ1TAB97 PO; +DIVA-134 PO; -DIVA-76 PO
--- NOTE | 2025-04-24 11:19 | Physician Documentation ---
History of Present Illness ~ Chief Complaint: Hypertension Stated Complaint: HIGH BLOOD PRESSURE Time Seen by MD: 08:53 Primary Medical Doctor: cholo Mode of Arrival: POV, Ambulatory HPI Asymptomatic hypertension from care facility. Patient denies chest pain, fevers, shortness of breath, headache, neurologic deficits. No changes in her regular antihypertensives. Medication Reconciliation Allergies: Coded Allergies: codeine (Unverified Allergy, Intermediate, 04/24/25) acetaminophen (Verified Allergy, Unknown, 04/24/25) cephalexin (Verified Allergy, Unknown, stomach upset, 04/24/25) amoxicillin (Verified Adverse Reaction, Unknown, stomach upset, 04/24/25) Uncoded Allergies: FLU (Allergy, Unknown, 04/19/12) Scheduled Albuterol Sulfate (Ventolin Hfa), 2 PUFFS INH Q4HPRN Amlodipine Besylate (Norvasc), 1 TABLET PO DAILY, (Reported) Aripiprazole (Abilify), 0.5 TAB PO DAILY, (Reported) Aspirin (Aspirin), 162 MG PO DAILY@0830 Aspirin/Dipyridamole* (Aggrenox*), 1 CAP PO BID, (Reported) Beclomethasone Dipropionate (Qvar 80 Mcg Inhaler), 2 PUFFS IH BID, (Reported) Benztropine Mesylate* (Cogentin*), 1 MG PO HS, (Reported) Budesonide/Formoterol Fumarate (Symbicort 160-4.5 Mcg Inhaler), 2 PUFF INH BID, (Reported) Budesonide/Formoterol Fumarate (Symbicort 160-4.5 Mcg Inhaler), 2 PUFFS INH Q12H Carvedilol (Carvedilol), 3.125 MG PO BID Dexamethasone (Decadron), 4 MG PO BID Divalproex Sodium DR* (Depakote DR*), 1 TABLET PO BID, (Reported) Docusate Sodium (Colace), 1 CAP PO Q12H Escitalopram Oxalate* (Lexapro*), 20 MG PO DAILY, (Reported) Guaifenesin (Mucinex), 1 TAB PO Q12H Hydrocodone/Ibuprofen (Vicoprofen 200-7.5 Mg Tab), 1 TAB PO Q6H Loratadine (Loratadine), 1 TAB PO DAILY, (Reported) Metformin HCl (Metformin HCl), 3 TAB PO HS, (Reported) Metformin Hcl* (Glucophage*), 1,000 MG PO QAM, (Reported) Nitrofurantoin Monohyd/M-Cryst (Macrobid 100 mg Capsule), 1 CAP PO Q12H Nitrofurantoin Monohyd/M-Cryst (Macrobid 100 mg Capsule), 1 CAP PO Q12H Pantoprazole Sodium (PROTONIX tablet), 40 MG PO BID Pantoprazole Sodium (PROTONIX tablet), 1 TAB PO DAILY Simvastatin* (Zocor*), 1 TAB PF HS, (Reported) Tolterodine Tartrate LA* (Detrol LA*), 2 MG PO DAILY, (Reported) Valsartan (Diovan), 1 TABLET PO DAILY, (Reported) Zafirlukast (Zafirlukast), 1 TAB PO DAILY Scheduled PRN Cyclobenzaprine* (Cyclobenzaprine*), 1 TABLET PO Q8H PRN for muscle spasms Diphenoxylate HCl/Atropine (Lomotil 2.5-0.025 mg Tablet), 1 TAB PO QDAY PRN PRN for diarrhea Diphenoxylate Hcl/Atrop Sulf (Lomotil Tablet), 2 TAB PO QID PRN, (Reported) ONDANSETRON ODT 4mg tablet (Ondansetron Odt), 1 TABLET PO Q6H PRN for nausea/vomiting Past Medical History Past Medical History: CVA/TIA/Stroke, Seizures, High Cholesterol, Hypertension, Asthma, COPD, GERD, UTI, Diabetes, Arthritis, Chronic Pain, Deep Vein Thrombosis, Psoriasis, Anxiety, Bipolar, Depression Past Surgical History: orthopedic surgeries, other Patient History: Unobtainable FATHER, MOTHER, Alcohol Use: None Drug Use: none Lives with: Other Lives In: Assisted Care Occupation: disabled Review of Systems All Other Systems at this time: Reviewed and Negative Physical Exam Vital Signs: RN Vital Signs have been reviewed: Yes, Temperature: 97.1, Source: Temporal, Heart Rate: 61, Respiratory Rate: 18, BP: 180/66, Pulse Oximetry: 99, Weight: 53.700 Oxygen Flow Rate: 0 Physical Exam Gen: no distress HEENT: PERRL, EOMI Pulm: no distress CTAB CV: RRR no m/c/r Abd: deferred MSK: no deformity Skin: w/d/i Neuro: nonfocal Psych: unremarkable Progress Results/Orders Results/Orders Completed Orders - NORMA MANN MD Clonidine Tablet (Catapres Tablet) (04/24/25 10:25) Medications Received in ER Medications (Trade) Dose Ordered Sig/Eliana Route PRN Reason Start Time Stop Time Status Last Admin Dose Admin (Catapres tablet) 0.1 mg ONCE ONCE PO 04/24/25 10:25 04/24/25 10:26 DC 04/24/25 11:04 0.1 MG Vital Signs 04/24/25 04/24/25 04/24/25 04/24/25 08:39 09:04 09:12 10:14 Temp 98.2 Pulse 73 62 54 Resp 14 14 22 19 B/P (MAP) 208/57 156/51 (86) 171/60 (97) Pulse Ox 100 98 97 O2 Flow Rate 0 04/24/25 11:05 Temp 97.1 Pulse 61 Resp 18 B/P (MAP) 180/66 (104) Pulse Ox 99 O2 Flow Rate 0 Medical Decision Making Additional information obtaine: N/A Findings 65 year old female with isolated hypertension at care facility, asymptomatic. No red flag symptoms, counseled, reassured, will discharge with return precautions. Differential Dx:Considerations: Include HTN, essential, Include HTN, encephalopathy, Include medical noncompliance, Include medication withdrawal, Include pulmonary edema, Include other Departure Disposition: 01 HOME / SELF CARE / HOMELESS Impression: Primary Impression: Hypertension Condition: Stable Discharge Instructions: Hypertension, Adult Referrals: NO PRIMARY CARE PROVIDER (PCP) Education Educated: Patient Educated regarding: diagnosis, treatment, prognosis, need for follow up Signature Scribe Signature: . Attestation: . NORMA MANN MD Apr 24, 2025 11:19
[2025-04-24 11:35] VITALS: BP 158/52; PULSE 55; RESP 16; TEMP 97.1; O2SAT 98
== END 2025-04-24 11:37 | disposition home or self-care (01) ==
LOC: ER 08:37
DX: I10 Essential (primary) hypertension (principal); E78.00 Pure hypercholesterolemia, unspecified; F31.9 Bipolar disorder, unspecified; J44.9 Chronic obstructive pulmonary disease, unspecified; F41.9 Anxiety disorder, unspecified; E11.9 Type 2 diabetes mellitus without complications; K21.9 Gastro-esophageal reflux disease without esophagitis; Z86.73 Personal history of transient ischemic attack (TIA), and cerebral infarction without residual deficits; Z88.0 Allergy status to penicillin; Z88.1 Allergy status to other antibiotic agents; Z88.5 Allergy status to narcotic agent; Z88.8 Allergy status to other drugs, medicaments and biological substances
CPT/HCPCS: 99285

== ENCOUNTER 2025-04-28 08:30 | Emergency (ER) | payer MEDICARE, MEDICAID ==
[~2025-04-28] VITALS: Ht 157.5 cm; Wt 64.1 kg
[2025-04-28 08:45] VITALS: TEMP 98.3
--- NOTE | 2025-04-28 09:02 | ELECTROCARDIOGRAPH REPORT ---
[facility] Test Date: 2025-04-28 Test Time: 08:59:42 Pat Name: YESSI RAY Department: EMERGENCY ROOM [id number] Room: Gender: F [address] Vendor: JOY : [id number] Requested By: ANNALISA TRAVIS Order Number: [id number] Reading MD: Dr. MEHUL Jorge Measurements Intervals [place] Rate: 54 P: 71 CA: 114 QRS: 87 QRSD: 97 T: 64 QT: 454 QTc: 431 Interpretive Statements Sinus bradycardia Borderline short CA interval Borderline right axis deviation Baseline wander in lead(s) I,II,III,aVR,aVL Electronically Signed On 04-29-2025 16:52:[address] MEHUL Jorge Please click the below link to view image of tracing.
--- NOTE | 2025-04-28 09:34 | Physician Documentation ---
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 The patient has severe hearing issues which were addressed and helped by her career coordinator for the information. The patient also visited to ER last week ago for the same reason and sent her back to her care facility. In this morning, she w panda up with the highest record of her BP without having any apparent symptoms, including shortness of breath, chest pain pressure discomfort, radiating back pain along her spine, dizziness lightheadness, any new FND and visual changes, lower urinary tract infections and respiratory distress and generalized pain, and abdominal pain etc. Pt stated that she has been taking prescribed antiHTN meds (Amlodipine 5 mg and Losartan 100 mg QD regularly) which was prescribed by her PCP Dr. Sierra at [facility] [place], [place]. Medication Reconciliation Allergies: Coded Allergies: codeine (Unverified Allergy, Intermediate, 04/24/25) acetaminophen (Verified Allergy, Unknown, 04/24/25) cephalexin (Verified Allergy, Unknown, stomach upset, 04/24/25) amoxicillin (Verified Adverse Reaction, Unknown, stomach upset, 04/24/25) Uncoded Allergies: FLU (Allergy, Unknown, 04/19/12) Scheduled Albuterol Sulfate (Ventolin Hfa), 2 PUFFS INH Q4HPRN Amlodipine Besylate (Norvasc), 1 TABLET PO DAILY, (Reported) Aripiprazole (Abilify), 0.5 TAB PO DAILY, (Reported) Aspirin (Aspirin), 162 MG PO DAILY@0830 Aspirin/Dipyridamole* (Aggrenox*), 1 CAP PO BID, (Reported) Beclomethasone Dipropionate (Qvar 80 Mcg Inhaler), 2 PUFFS IH BID, (Reported) Benztropine Mesylate* (Cogentin*), 1 MG PO HS, (Reported) Budesonide/Formoterol Fumarate (Symbicort 160-4.5 Mcg Inhaler), 2 PUFF INH BID, (Reported) Budesonide/Formoterol Fumarate (Symbicort 160-4.5 Mcg Inhaler), 2 PUFFS INH Q12H Carvedilol (Carvedilol), 3.125 MG PO BID Dexamethasone (Decadron), 4 MG PO BID Divalproex Sodium DR* (Depakote DR*), 1 TABLET PO BID, (Reported) Docusate Sodium (Colace), 1 CAP PO Q12H Escitalopram Oxalate* (Lexapro*), 20 MG PO DAILY, (Reported) Guaifenesin (Mucinex), 1 TAB PO Q12H Hydrocodone/Ibuprofen (Vicoprofen 200-7.5 Mg Tab), 1 TAB PO Q6H Loratadine (Loratadine), 1 TAB PO DAILY, (Reported) Metformin HCl (Metformin HCl), 3 TAB PO HS, (Reported) Metformin Hcl* (Glucophage*), 1,000 MG PO QAM, (Reported) Nitrofurantoin Monohyd/M-Cryst (Macrobid 100 mg Capsule), 1 CAP PO Q12H Nitrofurantoin Monohyd/M-Cryst (Macrobid 100 mg Capsule), 1 CAP PO Q12H Pantoprazole Sodium (PROTONIX tablet), 40 MG PO BID Pantoprazole Sodium (PROTONIX tablet), 1 TAB PO DAILY Simvastatin* (Zocor*), 1 TAB PF HS, (Reported) Tolterodine Tartrate LA* (Detrol LA*), 2 MG PO DAILY, (Reported) Valsartan (Diovan), 1 TABLET PO DAILY, (Reported) Zafirlukast (Zafirlukast), 1 TAB PO DAILY Scheduled PRN Cyclobenzaprine* (Cyclobenzaprine*), 1 TABLET PO Q8H PRN for muscle spasms Diphenoxylate HCl/Atropine (Lomotil 2.5-0.025 mg Tablet), 1 TAB PO QDAY PRN PRN for diarrhea Diphenoxylate Hcl/Atrop Sulf (Lomotil Tablet), 2 TAB PO QID PRN, (Reported) ONDANSETRON ODT 4mg tablet (Ondansetron Odt), 1 TABLET PO Q6H PRN for nausea/vomiting Past Medical History Past Medical History: CVA/TIA/Stroke, Seizures, High Cholesterol, Hypertension, Asthma, COPD, GERD, UTI, Diabetes, Arthritis, Chronic Pain, Deep Vein Thrombosis, Psoriasis, Anxiety, Bipolar, Depression Past Surgical History: orthopedic surgeries, other Patient History: Unobtainable FATHER, MOTHER, Smoking Status: Current every day smoker Alcohol Use: None Drug Use: none Lives with: Other Lives In: Assisted Care Occupation: disabled Additional Comment she is still actively smoking 3-4 cigarettes everyday for long time and denied drinking EtOH and using illicit drugs Review of Systems All Other Systems at this time: Reviewed and Negative Physical Exam Vital Signs: Temperature: 98.3, Source: Oral, Heart Rate: 57, Respiratory Rate: 15, BP: 186/66, Pulse Oximetry: 99, Weight: 64.100 Oxygen Flow Rate: 0 Physical Exam General: hearing defects, Well alert, well oriented, not confused, not agitated, not in acute distress, well cooperated during the physical. HEENT: Conjunctive are pink, sclerae clear, no icterus, pupil is equal in both sides, reactive to light, no ear discharge, no pharyngeal erythema or an edema, mouth and lips are moist. Neck: Supple, no JVD, no lymphadenopathy and thyromegaly. Lungs: Equal air entry on both lungs, no additional sounds Heart: S1-S2 regular sinus rhythm and, regular rate, no gallops, no rubs, no murmurs Abdomen: No visible peristalsis, Bowel sounds present on auscultation, soft, nontender, no guarding, no rigidity Extremities: No obvious deformities, no pitting edema bilaterally, capillary refill intact, able to wiggle toes both sides, peripheral pulsations are intact on both sides. Slight tenderness over bilateral legs ANESTHETIC ASSISTANT: No focal neurological deficits, no motor and sensory weakness in all 4 extremities, could move all 4 extremities Musculoskeletal: No joint swelling, deformities, inflammations, and no scoliosis and back tenderness Skin: No active skin lesions and rashes Progress Results/Orders Results/Orders Orders - ANNALISA TRAVIS DO Monitor (04/28/25 08:52) Saline Lock (04/28/25 08:52) Oxygen (04/28/25 08:52) Completed Orders - ANNALISA TRAVIS DO Cbc/Diff (04/28/25 08:52) BMP (04/28/25 08:52) Electrocardiogram (04/28/25 08:52) Hs Troponin I W Calculations (04/28/25 08:52) Hs Troponin I W Calculations (04/28/25 10:52) PBNP (04/28/25 09:24) Liver Panel (04/28/25 09:28) Vital Signs 04/28/25 04/28/25 04/28/25 04/28/25 08:45 09:00 09:07 09:41 Temp 98.3 Pulse 59 57 55 Resp 18 15 15 15 B/P (MAP) 175/61 186/66 (106) 170/60 (96) Pulse Ox 99 99 96 O2 Flow Rate 0 04/28/25 11:52 Pulse 54 Resp 16 B/P (MAP) 165/62 (96) Pulse Ox 96 Laboratory Tests Test 04/28/25 09:28 04/28/25 10:07 04/28/25 10:58 White Blood Count 6.3 Red Blood Count 3.91 L Hemoglobin 12.9 Hematocrit 38.6 Mean Corpuscular Volume 98.6 H Mean Corpuscular Hemoglobin 33.0 H Mean Corpuscular Hemoglobin Concent 33.4 Red Cell Distribution Width 13.7 Platelet Count 180 Mean Platelet Volume 8.5 Neutrophils (%) (Auto) 68.2 Lymphocytes (%) (Auto) 20.4 L Monocytes (%) (Auto) 7.9 Eosinophils (%) (Auto) 2.7 Basophils (%) (Auto) 0.8 Neutrophils # (Auto) 4.3 Lymphocytes # (Auto) 1.3 Monocytes # (Auto) 0.5 Eosinophils # (Auto) 0.2 Basophils # (Auto) 0.0 CBC Comment Sodium Level 142 Potassium Level 5.2 H Chloride Level 106 Carbon Dioxide Level 29.5 Anion Gap 7 L Blood Urea Nitrogen 38 H Creatinine 1.03 H Estimated GFR/1.73 m2 54 BUN/Creatinine Ratio 36.9 H Glucose Level 106 H Calcium Level 8.8 Total Bilirubin 0.3 Direct Bilirubin 0.1 Aspartate Amino Transf (AST/SGOT) 18 Alanine Aminotransferase (ALT/SGPT) 15 Alkaline Phosphatase 56 Troponin I High Sensitivity 12 12 Pro-B-Type Natriuretic Peptide 532 H Total Protein 6.4 Albumin 2.5 L Globulin 3.9 Albumin/Globulin Ratio 0.6 L Thyroid Stimulating Hormone (TSH) 2.88 Chemistry Comments Urine Specimen Description Urinal Urine Color Yellow Urine Clarity Cloudy Urine pH 6.0 Urine Specific [place] 1.025 Urine Protein >=300 H Urine Glucose (UA) Negative Urine Ketones Trace H Urine Occult Blood Negative Urine Nitrite Positive H Urine Bilirubin Negative Urine Urobilinogen 0.2 Urine Leukocyte Esterase Negative Urine RBC 0-2 Urine WBC 5-10 H Urine Squamous Epithelial Cells Few Urine Bacteria 4+ Urine Coarse Granular Casts 0-3 Urine Culture Indicated Indicated Volume Urine Centrifuged 10 ml Urine Comment Troponin I High Sens Percent Delta 0 Troponin I Hi Sens Absolute Change 0 EKG/XRAY/CT/US/VASC/MRI Chest X-Ray : Interpreted By: radiologist Views: 1 VIEW Indication: other Additional Comments FINDINGS/IMPRESSION: LUNGS: No pleural effusion, consolidation, or pneumothorax. MEDIASTINUM: Unremarkable. BONES: No acute osseous abnormality. OTHER: None. 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 # Asymptomatic uncontrolled Hypertension with no end organ damage -given background hx of uncontrolled HBP on 2 different anti HTN meds (amlodipine and Losartan) with average of BP around 170/70 mmHg, pt was receiving the extensive labs and imaging workups for the possible end organ damage including exclusion of secondary high blood pressure like CoA, Ao dissection, and some labs with evidences to figure out for [place], liver and kidney injury etc. -Further possible workup including secondary cause of HBP for Renal USG for possible Renal Artery stenosis, studying for pheochromcytoma etc. -The CMP dose not show any evidences of end organ damage at that moment regarding PE, Labs and imaging -Recommend to follow up regularly to adjust the BP meds for the optimal state and continuous monitoring with exclusion of secondary etiologies -Avoid dropping of the HBP more than 25% on the presentation of HBP to avoid the MAC ischemic CVA. # Possible chronic kidney injury from the uncontrolled High BP # Electrolytes imbalances- Hyperkalaemia -Her Cr showed 1.03 where her baseline a year ago was around 0.8 -Elevated BUN and CR ratio >20 with no signs of GI bleeding at that moment mostly from the dehydration -Potassium slightly elevated which could be from her chronic kidney injury with no EKG changes and symptoms -Needs to follow up with the nephrology outpatient workup including for the nephrotic range of proteinuria study -to consider the current ARB Losartan to strict the glomerulopathy induced proteinuria # Nonspecific elevation of proBNP -which could be non specific but mostly 2/2 buttermaker uncontrolled HBP induced cardiomyopathy led to possible Heart failure which is not exacerbation at that moment -recommend to follow up outpatient 2D Echocardiogram -monitor for heart failure in the outpatient and restrict daily salt intake # Asymptomatic Pyuria -Pt denied for any LUTI symptoms at that moment with positive nitrites -less likely necessitate to have ABx at that moment Differential Dx:Considerations: Include HTN, essential, Include HTN, accelerated, Include HTN, malignant, Include HTN, encephalopathy, Include pulmonary edema Departure Time of Disposition: 11:16 Disposition: 01 HOME / SELF CARE / HOMELESS Impression: Primary Impression: Hypertension Additional Impression: Essential hypertension Condition: Improved Additional Instructions: -Return to the ER immediately if there will be symptomatic HBP with any new neurological changes with weakness visual changes, headaches, chest pressure and pain, radiating back pain, LUTI etc -Be compliance with the BP monitoring twice daily for two weeks in a row to record to show the PCP, and follow up with PCP -Be compliance with the blood pressure medications regularly -DASH diet was encouraged -To consider the workup to exclude the secondary cause of HBP, and heamtology workup for Hyperchromic macrocytic erythrocytes with possible B12 and folate deficiency -to follow up with the outpatient Nephrology to control HBP induced glomerulopathies and proteinuria, to consider to increase the prescrbied dosage of ACEI/ARB to control HBP and Glomerulopathies with CKD Referrals: NO PRIMARY CARE PROVIDER (PCP) GABE SIERRA MD Education Educated: Patient, Other Educated regarding: diagnosis, treatment, prognosis, need for follow up, other Additional Comment Additional Comment Date: Apr 28, 2025 Time: 11:53 This is an attending supervisory note for the resident of record. I have personally participated in care of this patient, has been present during critical and/or daly portions of the patient's service, participated in the evaluation, and provided major portion of medical decision-making, independently interpreted imaging and laboratory studies and participated in disposition of this patient. In brief, this is a 65-year-old female with a known history of hypotension who p resented for evaluation of elevated blood pressure with systolic in 200. She has a absolutely no somatic complaints whatsoever. It appears the some genius who was using automated blood pressure cuff had saw a elevated number and sent her here for further evaluation. No attempt to contact primary care was made. The patient specifically denies any headache, chest pain, difficulty breathing, nausea, vomiting, diarrhea, abdominal pain, vision or hearing changes, denies lateralizing signs when inquired in the very plain Bengali. GENERAL: Awake, alert, oriented, GCS 15, no apparent distress, non-toxic appearing, answers questions, follows commands appropriately. Examined in bed 2. Accompanied by young female. HEENT: Atraumatic, normocephalic, pupils equal, extraocular muscles intact, sclerae anicteric, mucus membranes moist, oropharynx is clear, no stridor. NECK: supple, full active range of motion, trachea midline, no thyromegaly, no lymphadenopathy, no JVD. CARDIOVASCULAR: regular rate/rhythm, no murmurs/gallops/rubs, Pulses are 2+ in all extremities and symmetric. Capillary refill less than 2 seconds. PULMONARY: Nonlabored, good air movement ,no respiratory distress, speaking in full sentences, clear to auscultation bilaterally, no wheezing, no ronchi, no rales, no accessory muscle use. GASTROINTESTINAL: Soft, non-tender, non-distended, normal active bowel sounds, no organomegaly, no pulsatile masses, no CVA tenderness. NEUROLOGIC: Lucid with baseline mental status. Normal facial symmetry. Moves all extremities symmetrically and with purpose. No truncal ataxia. Speech is fluid without evidence of dysarthria or aphasia, no focal deficits appreciated. MUSCULOSKELETAL: There is full range of motion of all extremities. There is no joint pain or joint swelling or joint erythema. There is no muscle pain or tenderness or swelling. EXTREMITIES: warm, well-perfused, no cyanosis, no clubbing, no edema, no acute deformities. Skin: warm, dry, no rashes or lesions, no jaundice, no petechiae orpurpura. No ecchymosis. PSYCHIATRIC: Normal affect, normal insight, normal concentration. Focused exam: [] Differential diagnosis includes but not limited to hypotension with a without diagnosis of hypotension, hypertensive urgency, hypertensive emergency with a without end-organ damage. Medication noncompliance had also been considerably less likely drug toxidrome such as sympathomimetic intoxication. Laboratory workup is unremarkable. No evidence of end-organ damage. EKG was obtained and interpreted by myself shows sinus bradycardia, rate of 54, normal [place] interval, narrow QRS, no QT prolongation, normal axis, no STEMI Patient is hemodynamically stable for discharge home with follow with their primary care provider. [ ] Specific and cautious return precautions provided and discussed with full understanding. Any incidental findings were also discussed and follow up recommendations given. [] All questions answered. Patient/family were able to verbalize back return precautions. Patient/family agree to plan. Copies of imaging and laboratory studies were provided. Signature Scribe Signature: No scribe Attestation: Resident MD attestation: Patient was seen, examined and discussed with ER attending MD, Dr. Aundrea JOSHI MD Internal Medicine Resident, PGY3 [facility] This note accurately reflects clinical decisions, work performed by myself, DO MADELYN Bray TIN, RES Apr 28, 2025 09:33 ANNALISA TRAVIS DO Apr 28, 2025 11:56
[2025-04-28 09:42] LABS: MEAN PLATELET VOLUME 8.5 FL (7.4-10.4); RED CELL DISTRIBUTION WIDTH 13.7 % (11.5-14.5)
--- NOTE | 2025-04-28 09:53 | RADIOLOGY REPORT ---
EXAM: DI CHEST,SINGLE VIEW HISTORY: HTN TECHNIQUE: 1 view of the chest COMPARISON: DI CHEST,SINGLE VIEW on DOS: 07/07/23 FINDINGS/IMPRESSION: LUNGS: No pleural effusion, consolidation, or pneumothorax. MEDIASTINUM: Unremarkable. BONES: No acute osseous abnormality. OTHER: None.
[2025-04-28 10:36] LABS: LEUKOCYTE ESTERASE ,URINE NEGATIVE (Neg); NITRITES, URINE POSITIVE (Neg); OCCULT BLOOD,URINE NEGATIVE (Neg)
[2025-04-28 10:39] LABS: CREATININE 1.03 MG/DL (0.40-0.90); TOTAL CARBON DIOXIDE 29.5 MMOL/L (24-32); eCRCL 44 ML/MIN; eGFR 54 ML/MIN
[2025-04-28 10:52] LABS: UA COLLECTION TYPE URINAL
[2025-04-28 10:53] LABS: SQUAMOUS EPITHELIAL CELL,UR FEW /LPF (FEW)
[2025-04-28 10:54] LABS: COARSE GRANULAR CAST 0-3 /LPF (NEGATIVE)
[2025-04-28 10:56] LABS: PRO BRAIN NATRIURETIC PEPTIDE 532 PG/ML (0-125)
[2025-04-28 11:52] VITALS: BP 165/62; PULSE 54; RESP 16; O2SAT 96
[2025-05-08] MEDS ORDERED: CIPR-259 PO (15:05)
--- NOTE | 2025-05-08 15:09 | Physician Documentation ---
History of Present Illness ~ Chief Complaint: Hypertension Stated Complaint: HIGH BLOOD PRESSURE Time Seen by MD: 08:54 Primary Medical Doctor: cholo Mode of Arrival: Ambulatory Medication Reconciliation Allergies: Coded Allergies: codeine (Unverified Allergy, Intermediate, 04/24/25) acetaminophen (Verified Allergy, Unknown, 04/24/25) cephalexin (Verified Allergy, Unknown, stomach upset, 04/24/25) amoxicillin (Verified Adverse Reaction, Unknown, stomach upset, 04/24/25) Uncoded Allergies: FLU (Allergy, Unknown, 04/19/12) Scheduled Albuterol Sulfate (Ventolin Hfa), 2 PUFFS INH Q4HPRN Amlodipine Besylate (Norvasc), 1 TABLET PO DAILY, (Reported) Aripiprazole (Abilify), 0.5 TAB PO DAILY, (Reported) Aspirin (Aspirin), 162 MG PO DAILY@0830 Aspirin/Dipyridamole* (Aggrenox*), 1 CAP PO BID, (Reported) Beclomethasone Dipropionate (Qvar 80 Mcg Inhaler), 2 PUFFS IH BID, (Reported) Benztropine Mesylate* (Cogentin*), 1 MG PO HS, (Reported) Budesonide/Formoterol Fumarate (Symbicort 160-4.5 Mcg Inhaler), 2 PUFF INH BID, (Reported) Budesonide/Formoterol Fumarate (Symbicort 160-4.5 Mcg Inhaler), 2 PUFFS INH Q12H Carvedilol (Carvedilol), 3.125 MG PO BID Dexamethasone (Decadron), 4 MG PO BID Divalproex Sodium DR* (Depakote DR*), 1 TABLET PO BID, (Reported) Docusate Sodium (Colace), 1 CAP PO Q12H Escitalopram Oxalate* (Lexapro*), 20 MG PO DAILY, (Reported) Guaifenesin (Mucinex), 1 TAB PO Q12H Hydrocodone/Ibuprofen (Vicoprofen 200-7.5 Mg Tab), 1 TAB PO Q6H Loratadine (Loratadine), 1 TAB PO DAILY, (Reported) Metformin HCl (Metformin HCl), 3 TAB PO HS, (Reported) Metformin Hcl* (Glucophage*), 1,000 MG PO QAM, (Reported) Nitrofurantoin Monohyd/M-Cryst (Macrobid 100 mg Capsule), 1 CAP PO Q12H Nitrofurantoin Monohyd/M-Cryst (Macrobid 100 mg Capsule), 1 CAP PO Q12H Pantoprazole Sodium (PROTONIX tablet), 40 MG PO BID Pantoprazole Sodium (PROTONIX tablet), 1 TAB PO DAILY Simvastatin* (Zocor*), 1 TAB PF HS, (Reported) Tolterodine Tartrate LA* (Detrol LA*), 2 MG PO DAILY, (Reported) Valsartan (Diovan), 1 TABLET PO DAILY, (Reported) Zafirlukast (Zafirlukast), 1 TAB PO DAILY Scheduled PRN Cyclobenzaprine* (Cyclobenzaprine*), 1 TABLET PO Q8H PRN for muscle spasms Diphenoxylate HCl/Atropine (Lomotil 2.5-0.025 mg Tablet), 1 TAB PO QDAY PRN PRN for diarrhea Diphenoxylate Hcl/Atrop Sulf (Lomotil Tablet), 2 TAB PO QID PRN, (Reported) ONDANSETRON ODT 4mg tablet (Ondansetron Odt), 1 TABLET PO Q6H PRN for nausea/vomiting Past Medical History Past Medical History: CVA/TIA/Stroke, Seizures, High Cholesterol, Hypertension, Asthma, COPD, GERD, UTI, Diabetes, Arthritis, Chronic Pain, Deep Vein Thrombosis, Psoriasis, Anxiety, Bipolar, Depression Past Surgical History: orthopedic surgeries, other Patient History: Unobtainable FATHER, MOTHER, Smoking Status: Current every day smoker Alcohol Use: None Drug Use: none Lives with: Other Lives In: Assisted Care Occupation: disabled Physical Exam Vital Signs: Temperature: 98.3, Source: Oral, Heart Rate: 54, Respiratory Rate: 16, BP: 165/62, Pulse Oximetry: 96, Weight: 64.100 Oxygen Flow Rate: 0 Progress Results/Orders Results/Orders Laboratory Tests Test 04/28/25 09:28 04/28/25 10:07 04/28/25 10:58 White Blood Count 6.3 Red Blood Count 3.91 L Hemoglobin 12.9 Hematocrit 38.6 Mean Corpuscular Volume 98.6 H Mean Corpuscular Hemoglobin 33.0 H Mean Corpuscular Hemoglobin Concent 33.4 Red Cell Distribution Width 13.7 Platelet Count 180 Mean Platelet Volume 8.5 Neutrophils (%) (Auto) 68.2 Lymphocytes (%) (Auto) 20.4 L Monocytes (%) (Auto) 7.9 Eosinophils (%) (Auto) 2.7 Basophils (%) (Auto) 0.8 Neutrophils # (Auto) 4.3 Lymphocytes # (Auto) 1.3 Monocytes # (Auto) 0.5 Eosinophils # (Auto) 0.2 Basophils # (Auto) 0.0 CBC Comment Sodium Level 142 Potassium Level 5.2 H Chloride Level 106 Carbon Dioxide Level 29.5 Anion Gap 7 L Blood Urea Nitrogen 38 H Creatinine 1.03 H Estimated GFR/1.73 m2 54 BUN/Creatinine Ratio 36.9 H Glucose Level 106 H Calcium Level 8.8 Total Bilirubin 0.3 Direct Bilirubin 0.1 Aspartate Amino Transf (AST/SGOT) 18 Alanine Aminotransferase (ALT/SGPT) 15 Alkaline Phosphatase 56 Troponin I High Sensitivity 12 12 Pro-B-Type Natriuretic Peptide 532 H Total Protein 6.4 Albumin 2.5 L Globulin 3.9 Albumin/Globulin Ratio 0.6 L Thyroid Stimulating Hormone (TSH) 2.88 Chemistry Comments Urine Specimen Description Urinal Urine Color Yellow Urine Clarity Cloudy Urine pH 6.0 Urine Specific Roff 1.025 Urine Protein >=300 H Urine Glucose (UA) Negative Urine Ketones Trace H Urine Occult Blood Negative Urine Nitrite Positive H Urine Bilirubin Negative Urine Urobilinogen 0.2 Urine Leukocyte Esterase Negative Urine RBC 0-2 Urine WBC 5-10 H Urine Squamous Epithelial Cells Few Urine Bacteria 4+ Urine Coarse Granular Casts 0-3 Urine Culture Indicated Indicated Volume Urine Centrifuged 10 ml Urine Comment Troponin I High Sens Percent Delta 0 Troponin I Hi Sens Absolute Change 0 Microbiology Date/Time Source Procedure Growth Status 04/28/25 10:54 Urine Urinal (Er Only) Urine Culture - Final Enterobacter Aerogenes Escherichia Coli Complete Departure Time of Disposition: 11:16 Disposition: 01 HOME / SELF CARE Impression: Primary Impression: Hypertension Additional Impression: Essential hypertension Condition: Improved Additional Instructions: -Return to the ER immediately if there will be symptomatic HBP with any new neurological changes with weakness visual changes, headaches, chest pressure and pain, radiating back pain, LUTI etc -Be compliance with the BP monitoring twice daily for two weeks in a row to record to show the PCP, and follow up with PCP -Be compliance with the blood pressure medications regularly -DASH diet was encouraged -To consider the workup to exclude the secondary cause of HBP, and heamtology workup for Hyperchromic macrocytic erythrocytes with possible B12 and folate deficiency -to follow up with the outpatient Nephrology to control HBP induced glomerulopathies and proteinuria, to consider to increase the prescrbied dosage of ACEI/ARB to control HBP and Glomerulopathies with CKD Referrals: NO PRIMARY CARE PROVIDER (PCP) Prescriptions Ciprofloxacin HCl (Cipro) 500 Mg Tablet 1 TAB PO Q12H for 5 Days, #10 TAB Prov: OLGA BEY NP 05/08/25 OLGA BEY NP May 08, 2025 15:09
== END 2025-04-28 11:55 | disposition home or self-care (01) ==
LOC: ER 08:30
DX: I10 Essential (primary) hypertension (principal); J44.9 Chronic obstructive pulmonary disease, unspecified; E11.9 Type 2 diabetes mellitus without complications; E78.5 Hyperlipidemia, unspecified; F17.200 Nicotine dependence, unspecified, uncomplicated; F31.9 Bipolar disorder, unspecified; M19.90 Unspecified osteoarthritis, unspecified site; K21.9 Gastro-esophageal reflux disease without esophagitis; F41.9 Anxiety disorder, unspecified; G89.29 Other chronic pain; Z79.899 Other long term (current) drug therapy; Z86.718 Personal history of other venous thrombosis and embolism; Z86.73 Personal history of transient ischemic attack (TIA), and cerebral infarction without residual deficits; Z87.440 Personal history of urinary (tract) infections; Z88.5 Allergy status to narcotic agent; Z88.6 Allergy status to analgesic agent; Z88.1 Allergy status to other antibiotic agents; Z98.890 Other specified postprocedural states
CPT/HCPCS: 36415; 71045; 80048; 80076; 81001; 83880; 84443; 84484; 85025; 87077; 87088; 87186; 93005; 99285